=== PATIENT | female | born 1990 | race Two or more races ===

== ENCOUNTER 2018-05-07 13:12 | Observation (INO) | payer OTHER ==
[~2018-05-07] VITALS: Ht 157.5 cm; Wt 56.7 kg
[2018-05-07 13:26] VITALS: BP 113/62
[2018-05-07] MEDS ORDERED: TERBUTALINE 1 MG/ML VIAL SUBQ SCH (13:50)
[2018-05-07] MEDS ORDERED: TERBUTALINE 1 MG/ML VIAL SUBQ ONE (13:56)
[2018-05-07] MEDS ORDERED: LACTATED RINGERS 1,000 ML IV SCH (14:35)
== END 2018-05-07 15:34 | disposition home or self-care (01) ==
LOC: MLD 13:12
PROVIDERS: ADMIT Obstetrics & Gynecology; ATTEND Obstetrics & Gynecology
DX: O26.893 Other specified pregnancy related conditions, third trimester (principal); R55 Syncope and collapse; Z3A.28 28 weeks gestation of pregnancy
CPT/HCPCS: 96360; 96372; G0378; J3105